=== PATIENT | female | born 1940 | race Caucasian/White ===

== ENCOUNTER → 2018-09-05 | Day surgery (SDC) | payer MEDICARE, OTHER ==
[~2018-09-05] MED LIST: AMOX1TAB10 PO; ATOR10TA PO; DESL5TAB PO; INSU100I13 SQ; INSU100V31 SQ; IV RINGERS,LACTATED 1000ML 1,000 ML IV SCH; LEVO88TA2 PO; LIDOCAINE 1% PF 2 ML VIAL. ID PRN; LIDOCAINE 2% PF 5 ML VIAL. ONE; MIDAZOLAM HCL/PF 2 MG/2 ML VIAL. IV PRN; PROPOFOL 40 ML IV ONE; REPA2TAB PO; TRIA1CAP PO; fentaNYL PF VIAL 100 MCG/2 ML VIAL IV PRN
[2018-09-05 10:12] VITALS: BP 104/77
--- NOTE | 2018-09-06 15:06 | PATHOLOGY ---
[facility] Accession Number: [id number] . 01 Material submitted: . colon - BIOPSY DISTAL SIGMOID POLYPS. Modifiers: distal, sigmoid . 01 Clinical history: . Positive cologaurd . 02 Diagnosis: Colon biopsies, distal sigmoid polyps: - Hyperplastic polyps. 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 02 Comment: There are no adenomatous changes or evidence of malignancy. (JPM:clerk typist; 09/06/2018) . 02 Electronically signed: . Juan Trujillo MD, Pathologist NPI- [id number] . 01 Gross description: . The specimen is received in formalin, labeled "[place] Sequeira, BX distal sigmoid polyps",are few yo-red mucosal tissues measuring 1.0 x 0.3 x 0.2 cm in aggregate, entirely submitted in A1. ([facility]; 09/05/2018) [facility] . 02 Pathologist provided ICD-10: K63.5 . 02 CPT . 836478 Specimen Comment: A courtesy copy of this report has been sent to Specimen Comment: [phone], . Specimen Comment: Report sent to / DR ROBLES Performed at: 01 [facility] [address], [place], [place] [id number] MD Karan Jensen MD Phone: [phone] Performed at: 02 [facility] [address] [place], [place] [id number] MD Juan Trujillo MD Phone: [phone]
== END | disposition home or self-care (01) ==
LOC: SURG 08:01
PROVIDERS: ATTEND Internal Medicine
DX: K63.5 Polyp of colon (principal); K64.0 First degree hemorrhoids; K64.4 Residual hemorrhoidal skin tags; E11.9 Type 2 diabetes mellitus without complications; E03.9 Hypothyroidism, unspecified; E78.00 Pure hypercholesterolemia, unspecified; M19.90 Unspecified osteoarthritis, unspecified site; Z88.1 Allergy status to other antibiotic agents; Z88.5 Allergy status to narcotic agent; Z88.8 Allergy status to other drugs, medicaments and biological substances; Z79.899 Other long term (current) drug therapy; D64.9 Anemia, unspecified; Z85.3 Personal history of malignant neoplasm of breast; Z90.49 Acquired absence of other specified parts of digestive tract; Z90.710 Acquired absence of both cervix and uterus; Z98.890 Other specified postprocedural states; Z96.653 Presence of artificial knee joint, bilateral; E66.9 Obesity, unspecified; Z68.28 Body mass index [BMI] 28.0-28.9, adult; Z91.040 Latex allergy status; Z85.828 Personal history of other malignant neoplasm of skin; Z82.3 Family history of stroke; Z82.49 Family history of ischemic heart disease and other diseases of the circulatory system; Z79.84 Long term (current) use of oral hypoglycemic drugs; Z98.42 Cataract extraction status, left eye; Z98.41 Cataract extraction status, right eye; Z96.1 Presence of intraocular lens
CPT/HCPCS: 45380; 88305; J2001; J2704